=== PATIENT | female | born 1980 | race African-American/Black ===

== ENCOUNTER 2020-08-03 10:48 | Inpatient (IN) | payer OTHER ==
[~2020-08-03] VITALS: Ht 152.4 cm; Wt 58.5 kg
[2020-08-03] VITALS (9 sets, daily range): BP systolic 118–146; BP diastolic 62–81
[2020-08-03 11:46] LABS: CLARITY URINE TURBID (CLEAR); COLOR URINE YELLOW (YELLOW); KETONES URINE NEGATIVE (NEGATIVE); LEUKOCYTE ESTERASE URINE 2+ (NEGATIVE); NITRITE URINE NEGATIVE (NEGATIVE); OCCULT BLOOD URINE 2+ (NEGATIVE); PH URINE 5.5 (4.5-8.0); PROTEIN URINE 2+ (NEGATIVE); SPECIFIC GRAVITY URINE 1.027 (1.005-1.030); UROBILINOGEN URINE 0.2 E.U./dL (0.2-1.0)
[2020-08-03 11:47] LABS: HEMOGLOBIN. 11.4 g/dL (12.0-16.0); MEAN CORPUSCULAR HEMOGLOBIN 27.7 pg (28.0-32.0); MEAN CORPUSCULAR VOLUME 85.4 fL (81.0-99.0); MEAN PLATELET VOLUME 8.4 fl (7.4-10.4); PLATELET 154 x1000/uL (130-400); RED CELL DISTRIBUTION WIDTH 16.5 % (11.6-14.6)
[2020-08-03 11:51] LABS: CHLORIDE 94 mEq/L (98-107)
[2020-08-03 11:59] LABS: HCG SCREEN NEGATIVE
[2020-08-03] MEDS ORDERED: INSULIN REGULAR (HUMULIN R) 300UNITS/3ML VIAL IV STA (12:19)
[2020-08-03] MEDS ORDERED: CEFTRIAXONE 1 G PREMIX 50 ML IV ONE (12:30)
[2020-08-03] MEDS ORDERED: MORPHINE SULFATE 4 MG/ML CPJ (NOT FOR IM USE) IV ONE (12:45)
[2020-08-03 12:50] LABS: PLATELET ESTIMATE NORMAL
[2020-08-03] MEDS ORDERED: ONDANSETRON HCL 4MG/2ML INJ IV ONE (14:00)
[2020-08-03] MEDS ORDERED: SODIUM CHLORIDE 0.9% 1,000 ML IV ONE (14:45)
[2020-08-03] MEDS ORDERED: LABETALOL 5MG/ML SYR 20 MG/4 ML SYRINGE IV ONE ×2 (14:45→15:30)
[2020-08-03] MEDS ORDERED: HYDRALAZINE 20MG/ML VIAL IV ONE ×2 (16:15→17:30)
[2020-08-03] MEDS ORDERED: NICARDIPINE 40MG/200ML PREMIX 200 ML IV STA (17:54)
[2020-08-03 18:39] LABS: *AMPHETAMINES SCREEN URINE NEGATIVE (NEGATIVE); *BARBITURATES SCREEN URINE NEGATIVE (NEGATIVE); *BENZODIAZEPINES SCREEN URINE NEGATIVE (NEGATIVE); *COCAINE SCREEN URINE NEGATIVE (NEGATIVE)
[2020-08-03 18:40] LABS: METHADONE URINE SCREEN NEGATIVE (NEGATIVE); OPIATES URINE SCREEN NEGATIVE (NEGATIVE); PHENCYCLIDINE URINE SCREEN NEGATIVE (NEGATIVE)
[2020-08-03 18:47] LABS: CANNABINOID URINE SCREEN PRESUMTIVE POSITIVE (NEGATIVE)
[2020-08-03] MEDS ORDERED: IPRATROPIUM/ALBUTEROL 0.5-3(2.5)MG/3ML NEB HHN PRN (20:15)
[2020-08-03] MEDS ORDERED: DOCUSATE SODIUM 100MG CAPSULE PO PRN (20:15)
[2020-08-03 20:32] LABS: PHOSPHORUS 4.1 mg/dL (2.5-4.9)
[2020-08-03 20:33] LABS: BETA HYDROXYBUTYRATE 0.1 mMol/L (0.0-0.3)
[2020-08-03] MEDS ORDERED: INSULIN GLARGINE UD 100 UNITS/ML SYR SUBCUT SCH (22:00)
[2020-08-03] MEDS: HYDROCODONE/ACETAMINOPHEN 5/325MG TABLET PO PRN (22:14)
[2020-08-03] MEDS: ONDANSETRON HCL 4MG/2ML INJ IV PRN (22:14)
[2020-08-03] MEDS: SODIUM CHLORIDE 0.45% 1,000 ML IV SCH (22:46)
[2020-08-04] VITALS (84 sets, daily range): BP systolic 102–184; BP diastolic 43–100
[2020-08-04] MEDS: NICARDIPINE 50 MG in SODIUM CHLORIDE 0.9% 230 ML IV PRN ×2 (00:20→07:43)
[2020-08-04] MEDS: LORAZEPAM 0.5MG TABLET PO PRN (00:41)
[2020-08-04] MEDS: ONDANSETRON HCL 4MG/2ML INJ IV PRN ×4 (04:07→21:51)
[2020-08-04] MEDS ORDERED: LABE100T5 MT (04:46)
[2020-08-04] MEDS ORDERED: METF-415 MT (04:46)
[2020-08-04 05:43] LABS: CHLORIDE 98 mEq/L (98-107)
[2020-08-04 05:51] LABS: HEMATOCRIT. 35.4 % (36.0-48.0); HEMOGLOBIN. 11.3 g/dL (12.0-16.0); MEAN CORPUSCULAR VOLUME 84.9 fL (81.0-99.0); MEAN PLATELET VOLUME 9.3 fl (7.4-10.4); PLATELET 132 x1000/uL (130-400); RED BLOOD CELL COUNT 4.17 mill/uL (4.2-5.4); RED CELL DISTRIBUTION WIDTH 16.7 % (11.6-14.6)
[2020-08-04] MEDS ORDERED: POTASSIUM CHLORIDE 20MEQ/PACKET PO SCH (07:45)
[2020-08-04] MEDS: MORPHINE SULFATE 2 MG/ML CPJ (NOT FOR IM USE) IV PRN (10:25)
[2020-08-04] MEDS ORDERED: DEXTROSE 50% WATER 50ML SYRINGE IV PRN (11:30)
[2020-08-04] MEDS: BLOOD SUGAR DIAGNOSTIC STRIP TEST SCH ×3 (11:52→21:14)
[2020-08-04] MEDS: INSULIN LISPRO 100 UNITS/ML SUBCUT SCH ×3 (11:54→21:00)
[2020-08-04] MEDS: PIPERACILLIN/TAZOBACTAM 3.375G in DEXT 5% WATER 50ML IV SCH ×3 (13:47→23:02)
[2020-08-04] MEDS: INSULIN GLARGINE UD 100 UNITS/ML SYR SUBCUT SCH ×2 (13:51→23:03)
[2020-08-04] MEDS ORDERED: CEFTRIAXONE 1 G PREMIX 50 ML IV SCH (14:00)
[2020-08-04] MEDS ORDERED: PIPERACILLIN/TAZOBACTAM 3.375 G/VIAL IV SCH (14:00)
[2020-08-04 14:27] LABS: PLATELET ESTIMATE NORMAL
[2020-08-04] MEDS: DILTIAZEM HCL 60MG TABLET PO SCH ×2 (14:30→21:18)
[2020-08-04] MEDS: SODIUM CHLORIDE 0.45% 1,000 ML IV SCH (16:02)
[2020-08-04] MEDS: CLONIDINE 0.1MG TABLET PO PRN (16:02)
[2020-08-04] MEDS: ACETAMINOPHEN 325MG TABLET PO PRN ×2 (16:12→20:24)
[2020-08-05] VITALS (63 sets, daily range): BP systolic 121–201; BP diastolic 35–106
[2020-08-05] MEDS: MORPHINE SULFATE 2 MG/ML CPJ (NOT FOR IM USE) IV PRN (01:12)
[2020-08-05] MEDS: LORAZEPAM 0.5MG TABLET PO PRN (03:15)
[2020-08-05] MEDS: ONDANSETRON HCL 4MG/2ML INJ IV PRN ×2 (03:15→18:15)
[2020-08-05] MEDS: CLONIDINE 0.1MG TABLET PO PRN ×2 (03:16→18:11)
[2020-08-05] MEDS: PIPERACILLIN/TAZOBACTAM 3.375G in DEXT 5% WATER 50ML IV SCH ×3 (05:13→18:04)
[2020-08-05] MEDS: DILTIAZEM HCL 60MG TABLET PO SCH (05:13)
[2020-08-05 05:25] LABS: HEMATOCRIT. 32.2 % (36.0-48.0); HEMOGLOBIN. 10.4 g/dL (12.0-16.0); MEAN CORPUSCULAR HEMOGLOBIN 27.5 pg (28.0-32.0); MEAN CORPUSCULAR VOLUME 85.2 fL (81.0-99.0); MEAN PLATELET VOLUME 9.1 fl (7.4-10.4); PLATELET 123 x1000/uL (130-400); RED BLOOD CELL COUNT 3.77 mill/uL (4.2-5.4); RED CELL DISTRIBUTION WIDTH 17.3 % (11.6-14.6)
[2020-08-05] MEDS: INSULIN LISPRO 100 UNITS/ML SUBCUT SCH ×4 (07:50→20:48)
[2020-08-05] MEDS: BLOOD SUGAR DIAGNOSTIC STRIP TEST SCH ×4 (07:50→20:49)
[2020-08-05] MEDS ORDERED: POTASSIUM CHLORIDE 20MEQ TABLET SR PO SCH (10:00)
[2020-08-05] MEDS: INSULIN GLARGINE UD 100 UNITS/ML SYR SUBCUT SCH ×2 (10:57→20:47)
[2020-08-05] MEDS ORDERED: HYDRALAZINE HCL 50MG TABLET PO SCH (11:00)
[2020-08-05] MEDS: ACETAMINOPHEN 325MG TABLET PO PRN ×2 (11:10→18:11)
[2020-08-05 12:13] LABS: PLATELET ESTIMATE SLIGHTLY DECREASED
[2020-08-05] MEDS: SODIUM CHLORIDE 0.45% 1,000 ML IV SCH (12:47)
[2020-08-05] MEDS: DILTIAZEM HCL 90MG TABLET PO SCH ×3 (14:00→20:46)
[2020-08-05] MEDS ORDERED: CEFTRIAXONE 2 G PREMIX 50 ML IV SCH (18:30)
[2020-08-05] MEDS: HYDROCODONE/ACETAMINOPHEN 5/325MG TABLET PO PRN (20:47)
[2020-08-05] MEDS: HYDRALAZINE HCL 50MG TABLET PO SCH (20:47)
[2020-08-06] VITALS (17 sets, daily range): BP systolic 138–177; BP diastolic 72–106
[2020-08-06] MEDS: ONDANSETRON HCL 4MG/2ML INJ IV PRN (03:20)
[2020-08-06 05:47] LABS: BASOPHILS % 0.2 % (0.0-2.0); EOSINOPHILS % 0.4 % (0.0-5.0); HEMATOCRIT. 34.8 % (36.0-48.0); MEAN CORPUSCULAR HEMOGLOBIN 26.9 pg (28.0-32.0); MEAN CORPUSCULAR VOLUME 85.1 fL (81.0-99.0); MEAN PLATELET VOLUME 8.7 fl (7.4-10.4); MONOCYTES % 8.3 % (2.0-8.0); NEUTROPHILS % 81.1 % (40.0-76.0); PLATELET 135 x1000/uL (130-400); RED CELL DISTRIBUTION WIDTH 17.3 % (11.6-14.6)
[2020-08-06 05:52] LABS: CHLORIDE 99 mEq/L (98-107)
[2020-08-06] MEDS: DILTIAZEM HCL 90MG TABLET PO SCH (06:03)
[2020-08-06] MEDS ORDERED: POTASSIUM CHLORIDE 20MEQ TABLET SR PO NR (07:30)
[2020-08-06] MEDS: INSULIN LISPRO 100 UNITS/ML SUBCUT SCH ×4 (07:50→21:00)
[2020-08-06] MEDS: HYDRALAZINE HCL 50MG TABLET PO SCH ×2 (08:08→20:59)
[2020-08-06] MEDS: SODIUM CHLORIDE 0.45% 1,000 ML IV SCH (08:08)
[2020-08-06] MEDS: BLOOD SUGAR DIAGNOSTIC STRIP TEST SCH ×4 (08:08→21:00)
[2020-08-06] MEDS: INSULIN GLARGINE UD 100 UNITS/ML SYR SUBCUT SCH ×2 (10:24→21:57)
[2020-08-06] MEDS: HYDROCODONE/ACETAMINOPHEN 5/325MG TABLET PO PRN (10:25)
[2020-08-06] MEDS: DILTIAZEM HCL 120MG CAPSULE CD 24HR PO SCH ×2 (12:13→21:00)
[2020-08-06] MEDS: ACETAMINOPHEN 325MG TABLET PO PRN (17:35)
[2020-08-06] MEDS ORDERED: CEFTRIAXONE 2 G in DEXTROSE 5% WATER 50 ML IV SCH (21:00)
[2020-08-07] VITALS: BP 155/66
[2020-08-07 04:00] VITALS: BP 166/94
[2020-08-07] MEDS: CLONIDINE 0.1MG TABLET PO PRN (05:35)
[2020-08-07] MEDS: SODIUM CHLORIDE 0.45% 1,000 ML IV SCH (05:36)
[2020-08-07] MEDS: INSULIN LISPRO 100 UNITS/ML SUBCUT SCH ×3 (06:27→16:50)
[2020-08-07] MEDS: BLOOD SUGAR DIAGNOSTIC STRIP TEST SCH ×3 (06:27→16:50)
[2020-08-07 08:00] VITALS: BP 148/87
[2020-08-07] MEDS: HYDRALAZINE HCL 50MG TABLET PO SCH (08:41)
[2020-08-07] MEDS: DILTIAZEM HCL 120MG CAPSULE CD 24HR PO SCH (08:41)
[2020-08-07] MEDS: INSULIN GLARGINE UD 100 UNITS/ML SYR SUBCUT SCH (09:51)
[2020-08-07 12:00] VITALS: BP 156/98
[2020-08-07 16:00] VITALS: BP 154/84
[2020-08-07] MEDS ORDERED: LEVO750T46 MT (17:40)
[2020-08-07] MEDS ORDERED: HYDR100T26 PO (17:41)
[2020-08-07] MEDS ORDERED: DILT120C88 PO (17:41)
[2020-08-07] MEDS ORDERED: LANTUSUD SUBCUT (17:41)
[2020-08-07] MEDS ORDERED: ACET650T37 MT (17:43)
[2020-08-07] MEDS ORDERED: ONDA4TAB11 PO (17:43)
[2020-08-07 18:04] VITALS: BP 154/84
[2020-08-07] MEDS ORDERED: HYDRALAZINE HCL 100MG TABLET PO SCH (21:00)
== END 2020-08-07 19:00 | disposition home or self-care (01) | DRG 720 ==
LOC: ER 10:48 → CANRESERV 16:15 → ENRESERV 16:15 → CVICU 18:00 → EDBEDREQTM 18:03 → EDBEDREQ 18:03 → EDBEDREQSVC 18:03 → ENRESERV 19:26 → 8WST 08-06 16:52
PROVIDERS: ADMIT Internal Medicine; ATTEND Internal Medicine
DX: A41.9 Sepsis, unspecified organism (principal); I27.20 Pulmonary hypertension, unspecified; E11.22 Type 2 diabetes mellitus with diabetic chronic kidney disease; E87.2 Acidosis; E11.65 Type 2 diabetes mellitus with hyperglycemia; E83.42 Hypomagnesemia; N10 Acute pyelonephritis; B96.20 Unspecified Escherichia coli [E. coli] as the cause of diseases classified elsewhere; N18.2 Chronic kidney disease, stage 2 (mild); I13.10 Hypertensive heart and chronic kidney disease without heart failure, with stage 1 through stage 4 chronic kidney disease, or unspecified chronic kidney disease; E87.6 Hypokalemia; I16.1 Hypertensive emergency; D18.03 Hemangioma of intra-abdominal structures; Q63.2 Ectopic kidney; Z79.4 Long term (current) use of insulin; Z79.899 Other long term (current) drug therapy; Z83.3 Family history of diabetes mellitus; Z98.51 Tubal ligation status
CPT/HCPCS: 36415; 74176; 76705; 80048; 80053; 80061; 80305; 80320; 81003; 82010; 82962; 83036; 83605; 83735; 84100; 84443; 84703; 85025; 87077; 87186; 93005; 93306; 99291; J0360; J0696; J1815; J2270; J2405; J2543; J3490; J7030; J7040; J7050; J7060; G0480